=== PATIENT | male | born 1945 | race Caucasian/White ===

== ENCOUNTER 2020-12-05 13:00 | Observation (INO) | payer MEDICARE ==
[2020-12-05] VITALS (7 sets, daily range): BP systolic 90–113; BP diastolic 55–78; PULSE 66–87; TEMP 97.8–98.7
[~2020-12-05] VITALS: Wt 87.0 kg
[2020-12-05] MEDS ORDERED: DIGITEK0.25 MG PO (16:11)
[2020-12-05] MEDS ORDERED: ARMOUR THYROID30 MG PO (16:11)
[2020-12-05] MEDS ORDERED: LASIX 40MG TABL40 MG PO (16:12)
[2020-12-05] MEDS ORDERED: XARELTO15 MG PO (16:12)
[2020-12-05] MEDS ORDERED: TOPROL XL 25MG25 MG PO (16:13)
[2020-12-05] MEDS ORDERED: PROTONIX 40MG T40 MG PO (16:13)
[2020-12-05] MEDS ORDERED: ALDACTONE 25MG25 M1 PO (16:14)
[2020-12-05] MEDS ORDERED: PRINIVIL2.5 MG PO (16:15)
--- NOTE | 2020-12-05 18:15 | NUR ---
Patient has done well since arriving back to the floor. VSS. Patient tolerating PO intake well.
[2020-12-06] VITALS (7 sets, daily range): BP systolic 97–142; BP diastolic 60–77; PULSE 57–82; TEMP 97.6–98.2
--- NOTE | 2020-12-06 05:58 | NUR ---
PT HAD UNVENTFUL NIGHT, PT TELE MONITOR NSR RATE IN THE 60'70'S.VSS. PT DENIES PAIN,N,V,D. ALL NEEDS MET. PT EXPRESSES NO ADDITOINAL NEEDS, CALL LIGHT WITHIN REACH.
[2020-12-06 08:04] LABS: BASO # 0.1 (0.0-0.2); BASO % 0.9 % (0.0-2.0); EOS # 0.1 (0.0-0.7); EOS % 1.7 % (0-4.0); GRAN # 3.4 (1.4-6.5); GRAN % 57.7 % (42.2-75.2); HEMATOCRIT 44.1 % (42.0-52.0); HEMOGLOBIN 14.2 g/dl (13.5-18.0); LYMPH # 1.5 (1.2-3.4); LYMPH % 25.5 % (20.0-51.0); MEAN CELL VOLUME 86 fl (80.0-100.0); MEAN CORPUSCULAR HEMOGLOBIN 28 pg (27.0-31.0); MEAN CORPUSCULAR HGB CONC 32 g/dl (33.0-37.0); MEAN PLATELET VOLUME 11.1 fl (7.4-10.4); MONO # 0.8 (0.1-0.6); PLATELET COUNT 219 K/mm3 (130-400); RED BLOOD COUNT 5.11 M/mm3 (4.20-5.60); REDCELL DISTRIBUTION WIDTH-CV 15.2 % (11.5-14.5)
[2020-12-06 08:12] LABS: ALBUMIN 4.1 gm/dL (3.5-5.0); BILIRUBIN,TOTAL 1.3 mg/dL (0.0-1.0); CALCIUM 8.9 mg/dL (8.4-10.2); CREATININE, serum 0.68 (0.66-1.25); POTASSIUM 3.7 mmol/L (3.4-5.0)
--- NOTE | 2020-12-06 10:57 | NUR ---
Patient sitting in recliner upon entering the room. Patient appears forgetful at times, as he will pause for a long amount of time before answering a question, but he will respond correctly. There are not any concerns at this time.
--- NOTE | 2020-12-06 12:29 | NUR ---
Plan is to return to [facility]. SW met with patient in room about care. Patient reports that he has a who is supportive of his care. [place] . Patient reports that he resides in [place] and also uses the pharmacy in [place]. Patient denies having any DME for Mobility, Oxygen, or Heart related. Patient shares that his PCP is Dr. Hung. Patient reports that he continues to get stronger everyday. Patient reports that he was told that he could come back to [facility]. RAMANA called 3 x to [facility] and on the 1st, they reported that they did not agree to take patient back. RAMANA Spoke with Who reported that he spoke with the Nurse Practitioner who stated that they agreed to take patient back also. On Second call to [facility] Nurse reports that she does not have him on schedule and to send clinicial updates. RAMANA sent Clinicial reveiw. RAMANA spoke with Ani at [facility] who stated that she will reach out to the block and case maker who is not there on the weekend. On 3rd call, [facility] reports that they do no have a bed for patient. Nothing Follow.
[2020-12-07 03:17] VITALS: BP 119/73; PULSE 65; TEMP 97.9
--- NOTE | 2020-12-07 05:51 | NUR ---
PT HAD UNEVENTFUL NIGHT, VSS, HEART RATE WNL, PT DENIES N,V,D. ALL NEEDS MET. CALL LIGHT WITHIN REACH.
[2020-12-07 08:03] VITALS: BP 130/68; PULSE 63; TEMP 98.4
[2020-12-07 12:13] VITALS: BP 128/74; PULSE 58; TEMP 98.4
--- NOTE | 2020-12-07 14:06 | NUR ---
SW informed that [facility] did not have bed available for patient at this time. Staff informed RAMANA to assist with calling back on 12/08/2020 to see if there was an availabity for patient. RAMANA will continue to follow.
[2020-12-07 17:08] VITALS: BP 134/72; PULSE 61; TEMP 97.4
--- NOTE | 2020-12-07 18:47 | NUR ---
Patient is very pleasant, has not had a single complaint. All medications administered as ordered without difficulty.
[2020-12-07 20:05] VITALS: BP 144/87; PULSE 67; TEMP 98
[2020-12-07 23:51] VITALS: BP 135/73; PULSE 63; TEMP 97.6
[2020-12-08 04:26] VITALS: BP 109/61; PULSE 56; TEMP 97.2
--- NOTE | 2020-12-08 08:14 | NUR ---
Pt awake upon entry, sitting up in the bed. No C/O pain at this time. shift assessment complete, left Pt call light in reach, bed in lowest position.
[2020-12-08 08:25] VITALS: BP 130/74; PULSE 67; TEMP 97.7
[2020-12-08 12:00] VITALS: BP 127/74; PULSE 67; TEMP 98.1
--- NOTE | 2020-12-08 12:35 | NUR ---
First visit from the vendette. No needs right now.
--- NOTE | 2020-12-08 14:37 | NUR ---
RAMANA was informed that patient is ambulating 100 feet, therefore, insurance will not authorize back to [facility]. RAMANA informed patient and his , Jayda of this and patient will go to outpatient cardiac rehab at [facility]. RAMANA discussed this plan with Gloria JOSEPH, and patient will be d/c'd home with . expressed concern that patient would be discharging home with blood clots. This worker emphasized the importance of following up with cardiac dr. and to take his meds. *Discharge home
[2020-12-08] MEDS ORDERED: PACERONE200 MG PO (15:45)
[2020-12-08] MEDS ORDERED: CORDARONE200 MG/TAB PO (15:45)
--- NOTE | 2020-12-08 18:00 | NUR ---
Pt discharged to home. Discussed discharge information with Pt, answered questions. Escorted Pt to entrance, assisted into vehicle, Pt left with spouse via private transportation.
== END 2020-12-08 18:05 | disposition home or self-care (01) ==
LOC: MEDICAL 13:00
PROVIDERS: Nurse Practitioner; ADMIT Internal Medicine Interventional Cardiology
DX: I48.92 Unspecified atrial flutter (principal); I48.91 Unspecified atrial fibrillation; I11.0 Hypertensive heart disease with heart failure; I50.20 Unspecified systolic (congestive) heart failure; I26.99 Other pulmonary embolism without acute cor pulmonale; E03.9 Hypothyroidism, unspecified; Z79.899 Other long term (current) drug therapy
CPT/HCPCS: G0378; J2704; J7030